=== PATIENT | male | born 1940 | race Caucasian/White ===

== ENCOUNTER → 2023-10-17 12:55 | Outpatient (REF) | payer MEDICARE, OTHER, SELFPAY | LOC: MRI 3T 12:55 | PROVIDERS: ATTENDING PHYSICIAN Specialist; FAMILY PHYSICIAN Family Medicine | DX: M54.16 Radiculopathy, lumbar region (principal); M25.552 Pain in left hip | CPT/HCPCS: 72148; 73721 ==

== ENCOUNTER → 2023-10-28 11:32 | Outpatient (REF) | payer MEDICARE, OTHER, SELFPAY | LOC: DHCBS MAIN 11:32 | PROVIDERS: ATTENDING PHYSICIAN Nuclear Medicine Nuclear Cardiology; FAMILY PHYSICIAN Internal Medicine | DX: I25.10 Atherosclerotic heart disease of native coronary artery without angina pectoris (principal); Z95.5 Presence of coronary angioplasty implant and graft | CPT/HCPCS: 93306 ==

== ENCOUNTER → 2023-10-29 16:18 | Outpatient (REF) | payer MEDICARE, OTHER, SELFPAY | LOC: RAD 16:18 | PROVIDERS: ATTENDING PHYSICIAN Orthopaedic Surgery; FAMILY PHYSICIAN Internal Medicine | DX: M25.422 Effusion, left elbow (principal); M79.89 Other specified soft tissue disorders; R20.0 Anesthesia of skin; I82.622 Acute embolism and thrombosis of deep veins of left upper extremity | CPT/HCPCS: 93971 ==

== ENCOUNTER → 2024-05-25 17:06 | Outpatient (REF) | payer MEDICARE, OTHER, SELFPAY | LOC: RAD 17:06 | PROVIDERS: ATTENDING PHYSICIAN Internal Medicine | DX: J18.9 Pneumonia, unspecified organism (principal) | CPT/HCPCS: 71046 ==